=== PATIENT | female | born 1965 | race Caucasian/White ===

== ENCOUNTER 2021-09-17 16:14 | Emergency (ER) | payer OTHER ==
[~2021-09-17] VITALS: Ht 154.9 cm; Wt 74.8 kg
[2021-09-17 16:40] VITALS: BP 134/79
[2021-09-17] MEDS ORDERED: KETOROLAC 30 MG/ML VIAL IM ONE (18:25)
[2021-09-17] MEDS ORDERED: NAPR-1704 PO (18:28)
[2021-09-17 18:39] VITALS: BP 124/70
== END 2021-09-17 18:40 | disposition home or self-care (01) ==
LOC: MED 16:14
DX: M54.31 Sciatica, right side (principal); E78.5 Hyperlipidemia, unspecified; Z79.1 Long term (current) use of non-steroidal anti-inflammatories (NSAID)
CPT/HCPCS: 96372; 99283; J1885